=== PATIENT | female | born 1985 | race Caucasian/White ===

== ENCOUNTER → 2020-02-04 | Outpatient (CLI) | payer OTHER ==
--- NOTE | 2020-02-04 13:51 | RAD ---
PROCEDURE: SHOULDER 2+V RIGHT CLINICAL INDICATION / HISTORY: Reason: RIGHT SHOULDER PAIN, MOSTLY INFERIOR SCAPULA / Spl. Instructions: / History: . TECHNIQUE: AP internal and external rotation views with a Y- view were obtained. COMPARISON: None FINDINGS: No fracture, dislocation or bone destruction is identified. There are no degenerative changes at the right AC joint. No calcifications are seen in relation to the rotator cuff insertion. IMPRESSION: No acute osseous abnormality. Electronically signed by: Radha Peng MD (02/04/2020 1:48 PM) [id number]
== END | disposition home or self-care (01) ==
LOC: DXRAD 10:20
PROVIDERS: ATTEND Physician Assistant
DX: M25.511 Pain in right shoulder (principal)
CPT/HCPCS: 73030

== ENCOUNTER 2020-03-17 10:18 | Emergency (ER) | payer OTHER ==
[~2020-03-17] VITALS: Ht 157.5 cm; Wt 80.5 kg
--- NOTE | 2020-03-17 10:49 | PHYS DOC ---
Past History Past Medical History: Anxiety, Depression, GERD Past Surgical History: Other Additional Past Surgical Histo: NASAL Alcohol Use: None General Adult EDM: Chief Complaint: HEADACHE HPI: HPI: 34-year-old female coming in for frontal headache for the past 5 days. Says it started about 5 days ago but 2 days ago worse. No relief with ibuprofen. Patient states she has a history of headaches but normally they go away when she takes ibuprofen. Has had a runny nose but denies congestion. Does have pain is constant behind the bridge of her nose and her eyes. Has photophobia but no vision changes. Denies any ear symptoms. No recent injury or falls. Review of Systems: Review of Systems: Constitutional: Denies fever or chills Eyes: Denies change in visual acuity but complains of photophobia HENT: Denies nasal congestion or sore throat, but has rhinorrhea Respiratory: Denies cough or shortness of breath Cardiovascular: Denies chest pain or edema GI: Denies abdominal pain, nausea, vomiting, bloody stools or diarrhea : Denies dysuria Musculoskeletal: Denies back pain or joint pain Integument: Denies rash Neurologic: Has frontal headache but denies focal weakness or sensory changes Endocrine: Denies polyuria or polydipsia Lymphatic: Denies swollen glands Psychiatric: Denies depression or anxiety Heart Score: Risk Factors: Risk Factors: DM, Current or recent (<one month) smoker, HTN, HLP, family history of CAD, obesity. Risk Scores: Score 0 - 3: 2.5% MACE over next 6 weeks - Discharge Home Score 4 - 6: 20.3% MACE over next 6 weeks - Admit for Clinical Observation Score 7 - 10: 72.7% MACE over next 6 weeks - Early Invasive Strategies Current Medications: Current Meds: Current Medications Medications (Trade) Dose Ordered Sig/Samantha Start Time Stop Time Status Last Admin Dose Admin Diphenhydramine HCl (Benadryl) 50 mg 1X ONCE 03/17/20 10:45 03/17/20 10:46 UNV Ketorolac Tromethamine (Toradol 15mg Vial) 15 mg 1X ONCE 03/17/20 10:45 03/17/20 10:46 UNV Prochlorperazine Edisylate (Compazine) 10 mg 1X ONCE 03/17/20 10:45 10/16/20 10:46 UNV Sodium Chloride 1,000 ml @ 1,000 mls/hr 1X ONCE 03/17/20 10:45 03/17/20 11:44 UNV Allergies: Allergies: Allergies Coded Allergies Type Severity Reaction Last Updated Verified No Known Drug Allergies 03/17/20 No Physical Exam: PE: Constitutional: Well developed, well nourished, no acute distress, non-toxic appearance. [] HENT: Normocephalic, atraumatic, bilateral external ears normal, oropharynx moist, no oral exudates, nose normal. [] Eyes: PERRLA, EOMI, conjunctiva normal, no discharge. [] Neck: Normal range of motion, no tenderness, supple, no stridor. [] Cardiovascular:Heart rate regular rhythm, no murmur [] Lungs & Thorax: Bilateral breath sounds clear to auscultation [] Abdomen: Bowel sounds normal, soft, no tenderness, no masses, no pulsatile masses. [] Skin: Warm, dry, no erythema, no rash. [] Back: No tenderness, no CVA tenderness. [] Extremities: No tenderness, no cyanosis, no clubbing, ROM intact, no edema. [] Neurologic: Alert and oriented X 3, normal motor function, normal sensory function, no focal deficits noted. [] Psychologic: Affect normal, judgement normal, mood normal. [] Current Patient Data: Vital Signs: Vital Signs Date Time Temp Pulse Resp B/P (MAP) Pulse Ox O2 Delivery O2 Flow Rate FiO2 03/17/20 10:30 97.9 90 20 119/70 (86) 98 Room Air EKG: EKG: [] Radiology/Procedures: Radiology/Procedures: EXAM: CT ANGIOGRAPHY HEAD DATE: 03/17/2020 11:53 AM INDICATION: Headache, thrombosis, venogram TECHNIQUE: CT venogram was obtained after administration of intravenous contrast. Multiplanar reconstruction images to include MIP and 3-D reconstruction images are submitted. One or more of the following dose reduction techniques were utilized: Automated exposure control (AEC), Adjustment of mA and/or kV according to patient size, Use of iterative reconstruction technique such as ASiR, CT scan done according to ALARA and image gently/image wisely COMPARISON: Noncontrast CT head done earlier the same day. FINDINGS: All visualized portions of the superior sagittal sinus, internal cerebral veins, vein of Harvey, straight sinus, transverse sinuses, and sigmoid sinuses are patent. The visualized distal internal carotid arteries, anterior and middle cerebral arteries are patent and normal caliber. The distal vertebral arteries, basilar artery, and posterior cerebral arteries are patent and normal caliber. IMPRESSION: No evidence of intracerebral venous sinus thrombosis. []CT HEAD AND MAXILLOFACIAL WO Date: 03/17/2020 10:40 AM Clinical Indication: headache behind orbits, sinus pressure, facial pain / Spl. Instructions: / History: Comparison: None. Technique: 5 mm axial tomographic images were obtained of the head without contrast. These were viewed on brain and bone windows. Axial helical images of the face were obtained without contrast. Axial and coronal reconstruction was performed. One or more of the following dose reduction techniques were utilized: Automated exposure control (AEC), Adjustment of mA and/or kV according to patient size, Use of iterative reconstruction technique such as ASiR, CT scan done according to ALARA and image gently/image wisely CT HEAD FINDINGS: The brain parenchyma is normal in attenuation. No intra- or extra-axial mass or fluid collection. No acute hemorrhage. The ventricles are normal in size, shape, and morphology. The ramsey-white matter junction is normal. The basilar cisterns are patent. The mastoid air cells are clear. No aggressive osseous lesion or fracture. CT FACE FINDINGS: There is no acute facial bone fracture. Postsurgical changes of functional endoscopic sinus surgery. No significant paranasal sinus mucosal thickening. No air-fluid levels. The orbits are normal. The globes are intact. The nasal septum is deviated to the right. Impression: 1. No acute intracranial process. 2. No evidence of acute sinusitis. Course & Med Decision Making: Course & Med Decision Making Headache resolved with medications. Pertinent Labs and Imaging studies reviewed. (See chart for details) [] Dragon Disclaimer: Dragon Disclaimer: This electronic medical record was generated, in whole or in part, using a voice recognition dictation system. Departure Departure: Impression: Primary Impression: Headache Disposition: 01 DC HOME SELF CARE/HOMELESS Condition: IMPROVED Referrals: RAVI ELLINGTON MD (PCP) Patient Instructions: General Headache Without Cause CHRISTINE GANNON MD Mar 17, 2020 10:49
[2020-03-17] MEDS: KETOROLAC 15 MG/ML VIAL. IVP ONE (11:00)
[2020-03-17] MEDS: diphenhydrAMINE 50 MG/ML VIAL IVP ONE (11:04)
[2020-03-17] MEDS: PROCHLORPERAZINE 10 MG/2 ML VIAL. IV ONE (11:05)
[2020-03-17] MEDS: IV NORMAL SALINE 1,000ML 1,000 ML IV ONE (11:06)
[2020-03-17 11:14] LABS: BASO % 1 % (0-3); EOS # 0.2 x10^3/uL (0.0-0.7); EOS % 4 % (0-3); HEMATOCRIT 39.6 % (36.0-47.0); HEMOGLOBIN 13.3 g/dL (12.0-15.5); LYMPH # 1.9 x10^3/uL (1.0-4.8); LYMPH % 27 % (24-48); MEAN CORPUSCULAR HEMOGLOBIN 30 pg (25-35); MEAN CORPUSCULAR HGB CONC 34 g/dL (31-37); MEAN CORPUSCULAR VOLUME 88 fL (79-100); MONO # 0.4 x10^3/uL (0.0-1.1); MONO % 6 % (0-9); NEUT # 4.3 x10^3uL (1.8-7.7); NEUT % 63 % (31-73); PLATELET COUNT 219 x10^3/uL (140-400); RED BLOOD COUNT 4.48 x10^6/uL (3.50-5.40); RED CELL DISTRIBUTION WIDTH 12.5 % (11.5-14.5); WHITE BLOOD COUNT 6.8 x10^3/uL (4.0-11.0)
--- NOTE | 2020-03-17 11:15 | RAD ---
CT HEAD AND MAXILLOFACIAL WO Date: 03/17/2020 10:40 AM Clinical Indication: headache behind orbits, sinus pressure, facial pain / Spl. Instructions: / History: Comparison: None. Technique: 5 mm axial tomographic images were obtained of the head without contrast. These were viewed on brain and bone windows. Axial helical images of the face were obtained without contrast. Axial and coronal reconstruction was performed. One or more of the following dose reduction techniques were utilized: Automated exposure control (AEC), Adjustment of mA and/or kV according to patient size, Use of iterative reconstruction technique such as ASiR, CT scan done according to ALARA and image gently/image wisely CT HEAD FINDINGS: The brain parenchyma is normal in attenuation. No intra- or extra-axial mass or fluid collection. No acute hemorrhage. The ventricles are normal in size, shape, and morphology. The ramsey-white matter junction is normal. The basilar cisterns are patent. The mastoid air cells are clear. No aggressive osseous lesion or fracture. CT FACE FINDINGS: There is no acute facial bone fracture. Postsurgical changes of functional endoscopic sinus surgery. No significant paranasal sinus mucosal thickening. No air-fluid levels. The orbits are normal. The globes are intact. The nasal septum is deviated to the right. Impression: 1. No acute intracranial process. 2. No evidence of acute sinusitis. Electronically signed by: Escobar Mckay MD (03/17/2020 11:11 AM) [id number]
[2020-03-17 11:26] LABS: CALCIUM 8.9 mg/dL (8.5-10.1); GFR 63.9; POTASSIUM 3.8 mmol/L (3.5-5.1)
[2020-03-17] MEDS ORDERED: CONTRAST GIVEN. MC PRN (12:15)
[2020-03-17] MEDS: IOHEXOL 350 MG/ML 100 ML VIAL. IV ONE (12:16)
--- NOTE | 2020-03-17 12:52 | RAD ---
EXAM: CT ANGIOGRAPHY HEAD DATE: 03/17/2020 11:53 AM INDICATION: Headache, thrombosis, venogram TECHNIQUE: CT venogram was obtained after administration of intravenous contrast. Multiplanar reconstruction images to include MIP and 3-D reconstruction images are submitted. One or more of the following dose reduction techniques were utilized: Automated exposure control (AEC), Adjustment of mA and/or kV according to patient size, Use of iterative reconstruction technique such as ASiR, CT scan done according to ALARA and image gently/image wisely COMPARISON: Noncontrast CT head done earlier the same day. FINDINGS: All visualized portions of the superior sagittal sinus, internal cerebral veins, vein of Harvey, straight sinus, transverse sinuses, and sigmoid sinuses are patent. The visualized distal internal carotid arteries, anterior and middle cerebral arteries are patent and normal caliber. The distal vertebral arteries, basilar artery, and posterior cerebral arteries are patent and normal caliber. IMPRESSION: No evidence of intracerebral venous sinus thrombosis. Electronically signed by: Escobar Mckay MD (03/17/2020 12:49 PM) [id number]
[2020-03-17 13:29] VITALS: BP 116/86
== END 2020-03-17 13:30 | disposition home or self-care (01) ==
LOC: ER 10:18
DX: R51.9 Headache, unspecified (principal); H53.143 Visual discomfort, bilateral; R09.89 Other specified symptoms and signs involving the circulatory and respiratory systems; K21.9 Gastro-esophageal reflux disease without esophagitis
CPT/HCPCS: 36415; 70450; 70486; 70496; 80048; 85025; 85379; 96361; 96374; 96375; 99285; J0780; J1200; J1885; J7030; Q9967

== ENCOUNTER → 2020-04-13 | Outpatient (CLI) | payer OTHER ==
[2020-03-17 13:29] VITALS: BP 116/86
--- NOTE | 2020-04-13 19:37 | RAD ---
EXAM: FOOT LEFT 3V 04/13/2020 1:19 PM CLINICAL INDICATION:Fifth toe pain, injury COMPARISON:None TECHNIQUE:3 views of the left foot FINDINGS:There is a nondisplaced oblique fracture of the little toe proximal phalanx. No intra-articular extension. No other fracture. Alignment is normal. Joint spaces are maintained. No focal soft tissue abnormality. IMPRESSION:Nondisplaced fracture of the fifth proximal phalanx. Electronically signed by: Maris Hernández MD (04/13/2020 7:34 PM) [id number]
== END ==
LOC: DXRAD 13:13
PROVIDERS: ATTEND Physician Assistant
DX: S92.912A Unspecified fracture of left toe(s), initial encounter for closed fracture (principal); X58.XXXA Exposure to other specified factors, initial encounter; Y93.89 Activity, other specified; Y92.89 Other specified places as the place of occurrence of the external cause; Y99.8 Other external cause status
CPT/HCPCS: 73630

== ENCOUNTER → 2020-05-16 | Outpatient (CLI) | payer OTHER ==
--- NOTE | 2020-05-16 15:15 | RAD ---
Three-view left foot dated 05/16/2020. Comparison made to 04/21/2020. CLINICAL INDICATION: Foot pain. FINDINGS: 3 views left foot show normal bony alignment. There is a nondisplaced oblique fracture through the fi fth proximal phalanx with some interval healing compared to prior study. Persistent radiolucent line. No new fractures are identified. Alignment is stable. IMPRESSION: No significant interval change in the fifth proximal phalanx fracture with some interval healing. Electronically signed by: Eliecer Townsend MD (05/16/2020 3:13 PM) [id number]
== END ==
LOC: DXRAD 14:26
PROVIDERS: ATTEND Physician Assistant
DX: S92.515D Nondisplaced fracture of proximal phalanx of left lesser toe(s), subsequent encounter for fracture with routine healing (principal); X58.XXXD Exposure to other specified factors, subsequent encounter
CPT/HCPCS: 73630

== ENCOUNTER 2020-10-22 10:12 | Emergency (ER) | payer OTHER ==
[~2020-10-22] VITALS: Ht 162.6 cm; Wt 80.0 kg
--- NOTE | 2020-10-22 10:20 | PHYS DOC ---
Past History Past Medical History: Anxiety, Depression, GERD Past Surgical History: Other Additional Past Surgical Histo: NASAL Alcohol Use: None Adult General Chief Complaint Chief Complaint: HEADACHE HPI HPI Patient is a 35-year-old female presenting for migraine. This is an acute on chronic issue. She is well-established with primary care physician and started seeing neurologist in recent months for this issue. She has been prescribed a triptan medication but reports she ran out earlier this week. Reports current migraine started 72 hours prior without any known inciting event, trauma, ingestion or other concerning exposure. Symptoms feel classic to prior migraines. She has been nauseated and had several episodes of nonbloody nonbilious emesis. Describes generalized tension clustered around forehead region. She has been taking ibuprofen and Tylenol since she has been out of her triptan without significant relief in symptoms prompting her to come in for evaluation. No recent history of falls, meningitis, fever, sick contacts, motor or sensory function changes, no neurologic deficits reported Review of Systems Review of Systems Fourteen body systems of review of systems have been reviewed. See HPI for pertinent positives and negative responses, other reynoso all other systems are negative, non-pertinent or non-contributory Allergies Allergies Allergies Coded Allergies Type Severity Reaction Last Updated Verified No Known Drug Allergies 03/17/20 No Physical Exam Physical Exam Constitutional: Well developed, well nourished, no acute distress but appears uncomfortable, non-toxic appearance. HENT: Normocephalic, atraumatic, bilateral external ears normal, oropharynx dry, no oral exudates, nose normal. Eyes: PERRLA, EOMI, conjunctiva normal, no discharge. Neck: Normal range of motion, no tenderness, supple, no stridor. No meningeal signs, no nuchal rigidity Cardiovascular: Heart rate regular, sinus rhythm, no murmurs rubs or gallops Lungs & Thorax: Bilateral breath sounds clear to auscultation Abdomen: Bowel sounds normal, soft, no tenderness, no masses, no pulsatile masses. Nonsurgical abdomen, no peritoneal signs Skin: Warm, dry, no erythema, no rash. Back: No tenderness, no CVA tenderness. Extremities: No tenderness, no cyanosis, no clubbing, ROM intact, no edema. Neurologic: Alert and oriented X 3, cranial nerves II through XII intact, normal motor & sensory function, no focal deficits noted. Psychologic: Anxious affect and mood Current Patient Data Vital Signs Vital Signs Date Time Temp Pulse Resp B/P (MAP) Pulse Ox O2 Delivery O2 Flow Rate FiO2 10/22/20 10:28 97.7 112 18 118/83 (95) 97 Room Air Vital Signs Date Time Temp Pulse Resp B/P (MAP) Pulse Ox O2 Delivery O2 Flow Rate FiO2 10/22/20 10:28 97.7 112 18 118/83 (95) 97 Room Air EKG EKG [] Radiology/Procedures Radiology/Procedures [] Heart Score C/O Chest Pain: No Risk Factors: Risk Factors: DM, Current or recent (<one month) smoker, HTN, HLP, family history of CAD, obesity. Risk Scores: Risk Factors: DM, Current or recent (<one month) smoker, HTN, HLP, family history of CAD, obesity. Course & Med Decision Making Course & Med Decision Making Hemodynamically stable patient with HPI and physical exam concerning for migra ine headache which is typical for patient. She ran out of home abortive therapy and here for acute management Discussed little indication/concern for other more concerning diagnoses such as meningitis requiring lumbar puncture or other intracranial abnormalities based on unremarkable vitals and physical examination, patient concurred Joint decision made to administer IV fluids, antiemetics, antinausea medication, Toradol, and dexamethasone with near total improvement in symptoms. Patient reevaluated numerous times by healthcare providers with continued improvement in symptoms Patient felt fit for discharge home. She is ambulatory and continues to be well-appearing when discussing this. She has good access to care. Reports she can contact her PCP and neurologist first thing in the morning to review ER visit today and discuss next steps of care and need for close repeat evaluation. Strict return precautions discussed with good understanding by patient, all questions and concerns addressed prior to your departure Dragon Disclaimer Dragon Disclaimer This electronic medical record was generated, in whole or in part, using a voice recognition dictation system. Departure Departure: Impression: Primary Impression: Migraine headache Disposition: HOME / SELF CARE / HOMELESS Condition: IMPROVED Referrals: RAVI ELLINGTON MD (PCP) Patient Instructions: Migraine Headache Additional Instructions: You were seen for a migraine headache. Your symptoms improved with an NSAID, steroids, an anti-nausea medication and gentle fluid hydration. As disclose, your vital signs and physical exam was nonconcerning for other potentially emergent processes such as meningitis or other issues that would require further diagnostic work-up in ER setting. As such, close monitoring of your symptoms and close follow-up in outpatient setting with primary care physician and neurologist is vital. Should you experience any concerning signs or symptoms p rior to outpatient follow-up, please do not hesitate to come back for repeat evaluation. You should return to the ED if you develop worsening pain, vision change, numbness, tingling, weakness, vomiting, fever, neck pain, or any other new or concerning symptoms. It was a pleasure to take care of you and I wish you the best going forward KANDI SONI DO October 22, 2020 10:20
[2020-10-22 10:28] VITALS: BP 118/83
[2020-10-22] MEDS ORDERED: diphenhydrAMINE 50 MG/ML VIAL IVP ONE (10:45)
[2020-10-22] MEDS ORDERED: KETOROLAC 15 MG/ML VIAL. IVP ONE (10:45)
[2020-10-22] MEDS ORDERED: PROCHLORPERAZINE 10 MG/2 ML VIAL. IV ONE (10:45)
[2020-10-22] MEDS ORDERED: IV NORMAL SALINE 1,000ML 1,000 ML IV ONE (10:45)
[2020-10-22] MEDS ORDERED: DEXAMETHASONE SOD PHOS 10 MG/ML VIAL. IVP ONE (10:45)
== END 2020-10-22 12:30 | disposition home or self-care (01) ==
LOC: ER 10:12
DX: G43.909 Migraine, unspecified, not intractable, without status migrainosus (principal); F41.9 Anxiety disorder, unspecified; F32.9 Major depressive disorder, single episode, unspecified; K21.9 Gastro-esophageal reflux disease without esophagitis
CPT/HCPCS: 96361; 96374; 96375; 99284; J0780; J1100; J1200; J1885; J7030

== ENCOUNTER 2021-05-01 17:02 | Emergency (ER) | payer OTHER ==
[~2021-05-01] VITALS: Ht 162.6 cm; Wt 78.5 kg
--- NOTE | 2021-05-01 17:17 | PHYS DOC ---
Past History Past Medical History: Migraines Additional Past Medical Histor: ALLERGIES (KANDI SONI DO) Past Surgical History: , Other Additional Past Surgical Histo: NASAL (KANDI SONI DO) Alcohol Use: None (KANDI SONI DO) Adult General Chief Complaint Chief Complaint: HEADACHE HPI HPI Patient is a 35-year-old female presenting for migraine. This is an acute on chronic issue. She is well-established with primary care physician and also sees an sponge diver for ongoing allergies who actually manages her migraines. She states that she is on an injectable for this but thinks it has not been working that well. States recent migraine started 2 weeks ago without any known inciting event or trauma, states it is actually better than it was but ongoing chronicity prompted her to see sponge diver earlier today. She was subsequently prescribed oral steroids, short-term narcotic pain medication and an additional allergy medication. States she did not feel significant relief after prescribed medications prompting her to come in for evaluation. This is her second evaluation in 2019 and third evaluation in the past 12 months for same complaint. She states she responds to " what ever they gave me in the past through the IV". Denies any fever, nuchal rigidity, or changes in motor or sensory or neuro function (KANDI SONI DO) Review of Systems Review of Systems Fourteen body systems of review of systems have been reviewed. See HPI for pertinent positives and negative responses, other reynoso all other systems are negative, non-pertinent or non-contributory (KANDI SONI DO) Allergies Allergies Allergies Coded Allergies Type Severity Reaction Last Updated Verified No Known Drug Allergies 03/17/20 No (KANDI SONI DO) Physical Exam Physical Exam Constitutional: Well developed, well nourished, appears uncomfortable and in pain but is nontoxic HENT: Normocephalic, atraumatic, bilateral external ears normal, oropharynx moist, no oral exudates, nose normal. Eyes: PERRLA, EOMI, conjunctiva normal, no discharge. Neck: Normal range of motion, no tenderness, supple, no stridor. No nuchal rigidity or meningeal signs Cardiovascular: Heart rate regular, sinus rhythm, no murmurs rubs or gallops Lungs & Thorax: Bilateral breath sounds clear to auscultation Abdomen: Bowel sounds normal, soft, no tenderness, no masses, no pulsatile masses. Nonsurgical abdomen, no peritoneal signs Skin: Warm, dry, no erythema, no rash. Back: No tenderness, no CVA tenderness. Extremities: No tenderness, no cyanosis, no clubbing, ROM intact, no edema. Neurologic: Alert and oriented X 3, cranial nerves II through XII intact, normal motor & sensory function, no focal deficits noted. Psychologic: Affect normal, judgement normal, mood normal. (KANDI SONI DO) Current Patient Data Vital Signs Vital Signs Date Time Temp Pulse Resp B/P (MAP) Pulse Ox O2 Delivery O2 Flow Rate FiO2 05/01/21 17:11 98.3 94 16 148/89 (108) 98 Room Air Vital Signs Date Time Temp Pulse Resp B/P (MAP) Pulse Ox O2 Delivery O2 Flow Rate FiO2 05/01/21 17:11 98.3 94 16 148/89 (108) 98 Room Air (KANDI SONI DO) EKG EKG [] (KANDI SONI DO) Radiology/Procedures Radiology/Procedures [] (KANDI SONI DO) Heart Score C/O Chest Pain: No Risk Factors: Risk Factors: DM, Current or recent (<one month) smoker, HTN, HLP, family history of CAD, obesity. Risk Scores: Risk Factors: DM, Current or recent (<one month) smoker, HTN, HLP, family history of CAD, obesity. (KANDI SONI DO) Course & Med Decision Making Course & Med Decision Making ABCs unremarkable HPI and physical exam performed. Subsequent IV fluids, IV Compazine and Benadryl administered with p.o. Tylenol At this time in care, my shift is ending. Comprehensive signout given to oncoming physician. Please defer to Dr. Burns's documentation regarding future care of patient while in ER setting (KANDI SONI DO) Course & Med Decision Making The patient is feeling better after her treatment. She feels like she can go home. She is stable for discharge at this time. (NELSON BURNS DO) Dragon Disclaimer Dragon Disclaimer This electronic medical record was generated, in whole or in part, using a voice recognition dictation system. (KANDI SONI DO) Departure Departure: Impression: Primary Impression: Migraine Disposition: 01 HOME / SELF CARE / HOMELESS Condition: IMPROVED Referrals: RAVI ELLINGTON MD (PCP) ALEJO BRIGGS MD Patient Instructions: Migraine Headache Additional Instructions: You were seen for a headache. Your symptoms improved with Tylenol and an anti- nausea medication and gentle fluid hydration. You should return to the ED if you develop worsening pain, vision change, numbness, tingling, weakness, vomiting, fever, neck pain, or any other new or concerning symptoms. You need to follow up with your primary care physician for further evaluation and treatment. As discussed, you would benefit from close outpatient neurology follow-up given your ongoing issues with migraines. I have attached a local neurologist, Dr. Briggs, whom you should discuss need for outpatient consultation with your primary care physician KANDI SONI DO May 01, 2021 17:17 NELSON BURNS DO May 01, 2021 19:12
[2021-05-01] MEDS ORDERED: ACETAMINOPHEN 325 MG TABLET PO ONE (17:30)
[2021-05-01] MEDS ORDERED: PROCHLORPERAZINE 10 MG/2 ML VIAL. IV ONE (17:30)
[2021-05-01] MEDS ORDERED: diphenhydrAMINE 50 MG/ML VIAL IVP ONE (17:30)
[2021-05-01] MEDS ORDERED: IV NORMAL SALINE 1,000ML 1,000 ML IV ONE (17:30)
[2021-05-01 19:18] VITALS: BP 155/102
== END 2021-05-01 19:19 | disposition home or self-care (01) ==
LOC: ER 17:02
DX: G43.909 Migraine, unspecified, not intractable, without status migrainosus (principal); Z98.890 Other specified postprocedural states
CPT/HCPCS: 96361; 96374; 96375; 99284; J0780; J1200; J7030

== ENCOUNTER 2021-10-30 14:15 | Emergency (ER) | payer OTHER ==
[~2021-10-30] VITALS: Ht 162.6 cm; Wt 78.5 kg
--- NOTE | 2021-10-30 14:43 | PHYS DOC ---
Past History Past Medical History: Migraines Additional Past Medical Histor: ALLERGIES Past Surgical History: , Other Additional Past Surgical Histo: NASAL Alcohol Use: None General Adult EDM: Chief Complaint: HEADACHE HPI: HPI: Patient is a 36-year-old female who presents to the emergency department for a headache that is been going on for 2 weeks. Patient is reporting a temporal headache which she rates 8 out of 10. Headache is associated with nausea, photophobia and is worse with movement. She reports that this feels like her typical migraine headaches. She has been taking her triptan, ibuprofen and Tylenol at home without any relief. Patient reports that 3 days ago she started developing nasal congestion and a cough and was seen at urgent care diagnosed with sinusitis and started on amoxicillin. Patient reports that the amoxicillin has not improved her headache. She denies thunderclap headache and she reports that this is not the worst headache she is ever experienced. Review of Systems: Review of Systems: Eyes: See HPI HENT: See HPI GI: See HPI Neurologic: See HPI Current Medications: Current Meds: Current Medications Medications (Trade) Dose Ordered Sig/Samantha Start Time Stop Time Status Last Admin Dose Admin Diphenhydramine HCl (Benadryl) 25 mg 1X ONCE 10/30/21 14:45 10/30/21 14:46 UNV Ketorolac Tromethamine (Toradol 30mg Vial) 30 mg 1X ONCE 10/30/21 14:45 10/30/21 14:46 UNV Prochlorperazine Edisylate (Compazine) 10 mg 1X ONCE 10/30/21 14:45 10/30/21 14:46 UNV Sodium Chloride 1,000 ml @ 1,000 mls/hr 1X ONCE 10/30/21 14:45 10/30/21 15:44 UNV Allergies: Allergies: Allergies Coded Allergies Type Severity Reaction Last Updated Verified No Known Drug Allergies 10/30/21 No Physical Exam: PE: Constitutional: Well developed, well nourished, no acute distress, non-toxic appearance. [] HENT: Normocephalic, atraumatic, bilateral external ears normal, oropharynx moist, no oral exudates, nose normal. [] Eyes: PERRL, 4 mm bilaterally, no horizontal nystagmus, EOMI, conjunctiva normal, no discharge. [] Neck: Normal range of motion, no tenderness, supple, no stridor. [] Cardiovascular:Heart rate regular rhythm, no murmur [] Lungs & Thorax: Bilateral breath sounds clear to auscultation [] Abdomen: Soft and flat Skin: Warm, dry, no erythema, no rash. [] Back: No tenderness, normal range of motion Extremities: No tenderness, no cyanosis, no clubbing, ROM intact, no edema. [] Neurologic: Alert and oriented X 3, normal motor function, normal sensory function, no focal deficits noted, no limb ataxia, normal speech. [] Psychologic: Affect normal, judgement normal, mood normal. [] EKG: EKG: [] Radiology/Procedures: Radiology/Procedures: [] Heart Score: C/O Chest Pain: N/A Risk Factors: Risk Factors: DM, Current or recent (<one month) smoker, HTN, HLP, family history of CAD, obesity. Risk Scores: Score 0 - 3: 2.5% MACE over next 6 weeks - Discharge Home Score 4 - 6: 20.3% MACE over next 6 weeks - Admit for Clinical Observation Score 7 - 10: 72.7% MACE over next 6 weeks - Early Invasive Strategies Course & Med Decision Making: Course & Med Decision Making Pertinent Labs and Imaging studies reviewed. (See chart for details) [] Patient presents to the emergency department today for a headache. Patient reports that this feels very typical of her migraine headaches. She reports that occasionally her at home medications that she takes which are triptan, ibuprofen and Tylenol do not help and she needs to be seen in the emergency department for treatment. She denies thunderclap headache. She reports that this is not the worst headache she is ever experienced. Patient will be treated with migraine cocktail and IV fluids. Following treatment in the emergency department with a migraine cocktail and IV fluids, patient reports improvement in her pain but still reports a mild headache. She is given a dose of steroids in the emergency department. Patient is advised to continue taking her at home medications for her migraines and follow-up with her primary care provider. I discussed with patient all findings and diagnostic testing as well as the need to follow-up with PCP for further evaluation and treatment or return to the ER if any new or worsening symptoms. Strict return precautions were also discussed at length. Patient voiced understanding and agreement with the plan. Patient is hemodynamically stable at the time of disposition. Dragon Disclaimer: Dragon Disclaimer: This electronic medical record was generated, in whole or in part, using a voice recognition dictation system. Departure Departure: Impression: Primary Impression: Migraine headache Qualified Codes: G43.009 - Migraine without aura, not intractable, without status migrainosus Disposition: HOME / SELF CARE / HOMELESS Condition: GOOD Referrals: RAVI ELLINGTON MD (PCP) Patient Instructions: Migraine Headache Additional Instructions: You were seen in the emergency department today for migraine headache. You are treated with a migraine cocktail. Continue to take your migraine medications at home and you can take ibuprofen and Tylenol. Please increase your fluids. Follow-up with your primary care provider tomorrow regarding your ER visit. Return to the emergency department if you develop worsening of your head pain, intractable nausea or vomiting, high fevers refractory to treatment, confusion for coordination, vision changes, speech changes or any other neurological changes. DON WAN APRN October 30, 2021 14:43
[2021-10-30] MEDS ORDERED: diphenhydrAMINE 50 MG/ML VIAL IVP ONE (14:45)
[2021-10-30] MEDS ORDERED: IV NORMAL SALINE 1,000ML 1,000 ML IV ONE (14:45)
[2021-10-30] MEDS ORDERED: PROCHLORPERAZINE 10 MG/2 ML VIAL. IV ONE (14:45)
[2021-10-30] MEDS ORDERED: KETOROLAC 30 MG/ML VIAL. IVP ONE (14:45)
[2021-10-30 15:30] VITALS: BP 124/80
[2021-10-30] MEDS ORDERED: DEXAMETHASONE SOD PHOS 10 MG/ML VIAL. IVP ONE (16:00)
== END 2021-10-30 16:25 | disposition home or self-care (01) ==
LOC: ER 14:15
DX: G43.009 Migraine without aura, not intractable, without status migrainosus (principal); Z98.890 Other specified postprocedural states
CPT/HCPCS: 96361; 96374; 96375; 99284; J0780; J1100; J1200; J1885; J7030